=== PATIENT | male | born 1975 | race Caucasian/White ===

== ENCOUNTER → 2022-03-08 | Day surgery (SDC) | payer MEDICAID ==
[~2022-03-08] VITALS: Ht 167.6 cm; Wt 62.1 kg
[~2022-03-08] MED LIST: ACETAMINOPHEN 650MG/20.3ML UDC PO PRN; HYDROCODONE/ACETAMINOPHEN 5/325MG TABLET PO PRN; ONDANSETRON HCL 4MG/2ML INJ IV PRN
[2022-03-08 10:39] LABS: *AMPHETAMINES SCREEN URINE NEGATIVE (NEGATIVE); *BARBITURATES SCREEN URINE NEGATIVE (NEGATIVE); *BENZODIAZEPINES SCREEN URINE NEGATIVE (NEGATIVE); *COCAINE SCREEN URINE NEGATIVE (NEGATIVE); METHADONE URINE SCREEN NEGATIVE (NEGATIVE)
[2022-03-08 10:40] LABS: CANNABINOID URINE SCREEN NEGATIVE (NEGATIVE); OPIATES URINE SCREEN NEGATIVE (NEGATIVE); PHENCYCLIDINE URINE SCREEN NEGATIVE (NEGATIVE)
== END | disposition home or self-care (01) ==
LOC: OR 09:53
PROVIDERS: ATTEND Neurological Surgery
DX: R22.0 Localized swelling, mass and lump, head (principal); D16.4 Benign neoplasm of bones of skull and face; Z79.899 Other long term (current) drug therapy; Z98.890 Other specified postprocedural states; Z88.8 Allergy status to other drugs, medicaments and biological substances; Z20.822 Contact with and (suspected) exposure to COVID-19
CPT/HCPCS: 36415; 80305; 86850; 86900; 87426